=== PATIENT | male | born 1980 | race African-American/Black ===

== ENCOUNTER 2024-05-14 13:45 | Emergency (ER) | payer SELFPAY ==
[2024-05-14 13:54] VITALS: BP 135/83; PULSE 102; RESP 18; TEMP 99; BMI 24.3
[2024-05-14] MEDS ORDERED: KETOROLAC TROMETHAMINE 30 MG/1 ML VIAL ONE (14:50)
[2024-05-14] MEDS: KETOROLAC TROMETHAMINE 30 MG/1 ML VIAL IM ONE (14:58)
== END 2024-05-14 15:33 | disposition home or self-care (01) ==
LOC: JERFT 13:45
PROC: 3E0133Z Introduction of Anti-inflammatory into Subcutaneous Tissue, Percutaneous Approach (ICD-10-PCS; principal; 2024-05-14)
DX: K02.9 Dental caries, unspecified (principal); K08.89 Other specified disorders of teeth and supporting structures
CPT/HCPCS: 99284-25

== ENCOUNTER 2024-10-05 10:58 | Emergency (ER) | payer OTHER ==
[2024-10-05 11:07] VITALS: BP 128/91; PULSE 97; RESP 20; TEMP 97.9; BMI 30.4
[2024-10-05] MEDS ORDERED: KETOROLAC TROMETHAMINE 30 MG/1 ML VIAL ONE (12:02)
[2024-10-05] MEDS: KETOROLAC TROMETHAMINE 30 MG/1 ML VIAL IM ONE (12:11)
== END 2024-10-05 12:11 | disposition home or self-care (01) ==
LOC: JERFT 10:58
PROC: 3E0233Z Introduction of Anti-inflammatory into Muscle, Percutaneous Approach (ICD-10-PCS; principal; 2024-10-05)
DX: R22.0 Localized swelling, mass and lump, head (principal); K04.7 Periapical abscess without sinus
CPT/HCPCS: 99284-25